=== PATIENT | female | born 1960 | race Caucasian/White ===

== ENCOUNTER → 2016-12-15 | Outpatient (CLI) | payer MEDICAID ==
[~2016-12-15] MED LIST: ASPI325T32 PO; BUDE10.2 IH; CETI10TA17 PO; ETHA400T29 PO; FLUT16SP22 NS; FLUT50DI IH; HYDR-3812 PO; ISON300T4 PO; MULT-141 PO; PYRA500T13 PO; PYRI50TA10 PO; RIFA300C3 PO; RT-ALBUINH IH; UMEC62.5 IH
--- OUTSIDE RECORDS SUMMARY | 2016-12-15 10:52 | XMS REPORT | Continuity of Care Document ---
Author Author [facility] Organization [facility] Address Unknown Phone Unavailable Care Team Providers Care Superintendent Water And Sewer Systems Name Role Phone NO, LOCAL PHYSICIAN PCP Unavailable Insurance Providers Payer Name Policy Number Subscriber Name Relationship Self Pay Pending Disability [id number] Sienna Mckinnon 18 Self / Same As Patient Advance Directives Directive Response Recorded Date/Time Advance Directives No 04/26/16 1:10pm Health Care Power of Lab Systems Analyst No 04/26/16 1:10pm Organ Donor No 04/26/16 1:10pm Resuscitation Status Full Code 04/26/16 1:10pm Chief Complaint and Reason for Visit Chief Complaint RUL PNEUMONIA Reason for Visit Pneumonia Problems Active Problems Medical Problem Onset Date Status Pneumonia Unknown Acute Medications Current Home Medications Medication Dose Units Route Directions Days/Qty Instructions Start Date Cetirizine Hcl 10 Mg 10 Mg Oral Daily 04/25/16 Albuterol Sulfate 18 Gm 1-2 Puff Inhalation Four Times Daily as needed for Shortness Of Breath 04/25/16 Budesonide/Formoterol Fumarate 10.2 Gm 2 Puff Inhalation Twice A Day 04/25/16 Fluticasone Propionate 16 Gm 2 Sprays Nasal Twice A Day 04/26/16 Umeclidinium Raymond 62.5 Mcg 1 Puff Inhalation Daily 04/26/16 Multivit With Calcium,Iron,Min 1 Each 1 Tab Oral Daily 04/26/16 Aspirin 325 Mg 650 Mg Oral Daily as needed for Pain TAKES 2 (325MG) TABLETS 04/26/16 Ethambutol Hcl 400 Mg 1,600 Mg Oral Daily 120 05/05/16 Isoniazid 300 Mg 300 Mg Oral Daily 30 05/05/16 Pyrazinamide 500 Mg 2,000 Mg Oral Daily 120 05/05/16 Rifampin 300 Mg 600 Mg Oral Daily 60 05/05/16 Hydrocodone/Acetaminophen 1 Each 1 Tab Oral Every 4HRS as needed for Pain 60 05/05/16 Pyridoxine Hcl 50 Mg 50 Mg Oral Daily 30 05/05/16 Past Home Medications Medication Directions Ordered Status Fluticasone Propionate 1 Disk Inhp, 50 Mcg Inhalation Twice A Day 04/25/16 Discontinued Social History Social History Problem Response Recorded Date/Time Alcohol Use Occasionally Uses 04/26/2016 2:44pm Recreational Drug Use No 04/26/2016 2:44pm Recent Foreign Travel No 04/26/2016 2:47pm Recent Infectious Disease Exposure No 04/26/2016 2:47pm Hospitalization with Isolation Denies 05/05/2016 2:12pm Sexually Transmitted Disease No 04/26/2016 2:44pm HIV/AIDS No 04/26/2016 2:44pm Smoking Status Former Smoker 04/26/2016 1:12pm Type Used Cigarettes 05/05/2016 2:13pm Query Response Start Date Stop Date Smoking Status Former Smoker Hospital Discharge Instructions Patient Instructions Physician Instructions New, Converted or Re-Newed RX: Transmitted to Pharmacy Goal/Follow Up Appt: MAY 12 AT 8:40 WITH LILY PATI[facility]O [place]. Patient Instructions: THE HEALTH DEPARTMENT WILL MEET YOU AT YOUR HOUSE LATER TODAY. PLEASE ASK FOR LIZBETH OR DEDE WHEN CHECKING IN AT THE CLINIC SO THEY CAN HELP YOU GET TO A ROOM QUICKLY. Return to The Hospital For: COUGHING UP BLOOD, FEVER >101 Discharge Diet: No Restrictions Activity as Tolerated: Yes (THE HEALTH DEPARTMENT WILL TELL YOU THE RESTRICTIONS FAR GOING IN PUBLIC) Care Plan Patient Instructions:: THE HEALTH DEPARTMENT WILL MEET YOU AT YOUR HOUSE LATER TODAY. PLEASE ASKFOR LIZBETH OR DEDE WHEN CHECKING IN AT THE CLINIC SO THEY CAN HELP YOU GETTO A ROOM QUICKLY. Goal:: MAY 12 AT 8:40 WITH LILY PATI[facility]O [place]. Plan of Care Discharge Date 07/21/16 1:45pm Disposition 09 ADMITTED INPATIENT Instructions/Education Provided PICC-POST REMOVAL CARE Tuberculosis (GEN) Prescriptions See Medication Section Referrals LILY PATIÑO APRN (Unspecified) - 05/12/16 Address: [address] [place] [address] Reason(s) for Referral: MAY 12, 2016 AT 8:40 A.M. LILY PATI[facility]O [facility] Additional Instructions/Education FOLLOW UP WITH DR. WATTERS [phone] IF NEEDED AND HE WANTS YOU TO FOLLOW UP WITH PCP AND HEALTH DEPT. [facility] DEPT TO VISIT LATER TODAY AT HOME Care Plan and Goals See Discharge Instructions Section Functional Status Query Response Date Recorded Patient Orientation Person Place Time Situation May 05, 2016 2:12pm Comprehension Ability Understands Concepts May 01, 2016 8:00pm Allergies, Adverse Reactions, Alerts Allergen Type Severity Reaction Status Last Updated Morphine Allergy Unknown Active 04/25/16 Immunizations No immunization records. Vital Signs Acute Vital Signs Vital Response Date/Time Temperature (Fahrenheit) 97.8 degrees F (97.6 - 99.5) 05/05/2016 10:00am Temperature (Calculated Celsius) 36.75922 degrees C (36.4 - 37.5) 05/05/2016 10:00am Temperature Source Oral 05/05/2016 10:00am Pulse Rate (adult) 109 bpm (60 - 90) 05/05/2016 10:00am Respiratory Rate 18 bpm (12 - 24) 05/05/2016 10:00am O2 Sat by Pulse Oximetry 98 % (88 - 100) 05/05/2016 11:16am Blood Pressure 127/72 mm Hg 05/05/2016 10:00am Blood Pressure Mean 90 mm Hg 05/05/2016 10:00am Pain Numeric Pain Scale 5-Moderate Pain 05/05/2016 1:20pm Pain Intensity 0 04/25/2016 8:25am Height (Feet) 5 feet 04/26/2016 1:32pm Height (Inches) 6.00 inches 04/26/2016 1:32pm Height (Calculated Centimeters) 167.557860 cm 04/26/2016 1:32pm Weight (Pounds) 170 pounds 05/03/2016 5:19pm Weight (Ounces) 12.0 oz 05/03/2016 5:19pm Weight (Calculated Grams) 19253.898 gm 05/03/2016 5:19pm Weight (Calculated Kilograms) 77.598826 kilograms 05/03/2016 5:19pm Calculated BMI 27.7 04/26/2016 1:32pm Results Pending Laboratory Results Test Name Collection Date/Time Pending Microbiology Results Procedure Source Collection Date/Time Procedures Procedure Status Date Provider(s) Interventional bronchoscopy Completed 04/25/16 DEEPALI WATTERS DO Encounters Encounter Location Arrival/Admit Date Discharge/Depart Date Attending Provider Discharged Inpatient [facility] 04/26/16 12:03pm 1:45pm CHRISTI ALLEN MD Departed Surgical Day Care [facility] 04/25/16 6:06am 8:45am DEEPALI WATTERS DO Registered Clinic [facility] 04/17/16 10:59am LILY PATIÑO APRN Recent Diagnosis Pneumonia
== END ==
LOC: LAB 10:48
PROVIDERS: ATTEND Internal Medicine Critical Care Medicine
DX: R09.3 Abnormal sputum (principal); R06.00 Dyspnea, unspecified
CPT/HCPCS: 87070; 87116; 87205

== ENCOUNTER → 2016-12-22 | Outpatient (CLI) | payer MEDICAID ==
--- OUTSIDE RECORDS SUMMARY | 2016-12-22 10:18 | XMS REPORT | Continuity of Care Document ---
Author Author [facility] Organization [facility] Address Unknown Phone Unavailable Care Team Providers Care Spinning Lathe Operator Name Role Phone NO, LOCAL PHYSICIAN PCP Unavailable Insurance Providers Payer Name Policy Number Subscriber Name Relationship Self Pay Pending Disability [id number] Sienna Mckinnon 18 Self / Same As Patient Advance Directives Directive Response Recorded Date/Time Advance Directives No 04/26/16 1:10pm Health Care Power of Guitar Repairer No 04/26/16 1:10pm Organ Donor No 04/26/16 [...] Sprays Nasal Twice A Day 04/26/16 Umeclidinium Darby 62.5 Mcg 1 Puff Inhalation Daily 04/26/16 [...] 12 AT 8:40 WITH LILY PATI[facility]O IN [place]. Patient Instructions: THE HEALTH DEPARTMENT WILL MEET [...] 12 AT 8:40 WITH LILY PATIÑO [place]. Plan of Care Discharge Date 07/21/16 1:45pm Disposition 09 ADMITTED INPATIENT Instructions/Education Provided PICC-POST REMOVAL CARE Tuberculosis (GEN) Prescriptions See Medication Section Referrals LILY PATIÑO APRN (Unspecified) - 05/12/16 Address: [address] [place] [address] Reason(s) for Referral: MAY 12, 2016 AT 8:40 A.M. LILY PATIÑO [facility] Additional Instructions/Education FOLLOW UP WITH DR. WATTERS [phone] IF NEEDED AND HE WANTS YOU TO FOLLOW UP WITH PCP AND HEALTH DEPT. [facility] DEPT TO VISIT LATER TODAY AT HOME [...] - 99.5) 05/05/2016 10:00am Temperature (Calculated Celsius) 36.17475 degrees C (36.4 - 37.5) 05/05/2016 10:00am [...] 6.00 inches 04/26/2016 1:32pm Height (Calculated Centimeters) 167.435316 cm 04/26/2016 1:32pm Weight (Pounds) 170 pounds 05/03/2016 5:19pm Weight (Ounces) 12.0 oz 05/03/2016 5:19pm Weight (Calculated Grams) 16838.898 gm 05/03/2016 5:19pm Weight (Calculated Kilograms) 77.587518 kilograms 05/03/2016 5:19pm Calculated BMI 27.7 04/26/2016 1:32pm Results Pending Laboratory Results Test Name Collection Date/Time Pending Microbiology Results Procedure Source Collection Date/Time Procedures Procedure Status Date Provider(s) Interventional bronchoscopy Completed 04/25/16 DEEPALI WATTERS DO Encounters Encounter Location Arrival/Admit Date Discharge/Depart Date Attending Provider Discharged Inpatient [facility] 04/26/16 12:03pm 1:45pm CHRISTI ALLEN MD Departed Surgical Day Care [facility] 04/25/16 6:06am 8:45am DEEPALI WATTERS DO Registered Clinic [facility] 04/17/16 10:59am LILY PATIÑO APRN Recent Diagnosis Pneumonia
--- NOTE | 2016-12-22 15:02 | Diagnostic Imaging Report ---
PROCEDURE: CT chest without contrast. TECHNIQUE: Multiple contiguous axial images were obtained through the chest without the use of intravenous contrast. INDICATION: Dyspnea, abnormal sputum. The previous CT chest exam of 04/17/16 noted a large 7.2 cm cavitary mass with a small air-fluid level in the right upper lobe. Just superior to this, there was a smaller 1.5 cm partially cavitated lung nodule. There was also a solid 1.4 cm nodule in the medialmost portion of the right upper lung. FINDINGS: On this exam, the cavitary lesion in the right upper lung has decreased in size and now measures 4.5 cm. The fluid within the cavitary lesion seen previously is also resolved. The other cavitary lesion in the left upper lung noted previously is also decreased in size and now measures 11.1 cm. This finding now appears to be predominantly solid. The 1.4 cm solid lesion in the medial aspect of the right apex now measures only 1.3 cm. The alveolar/interstitial parenchymal densities about these cavitary lesions seen on the prior study are again evident. These seem somewhat less conspicuous as well. The patchy alveolar/interstitial densities in the right midlung and right lung base noted previously are again evident and essentially no different. However, a new area of slight increased density has developed in the medialmost portion of the right lung base. The previous study also identified a cavitary lesion in the left perihilar region. This measured 2.7 cm. That finding is again evident and now is much smaller measuring only 1.4 cm. The 0.6 cm nodule in the left upper lung is essentially no different and now measures 0.7 cm. As on the previous study, there are patchy alveolar/interstitial infiltrates in the left upper lung. The left lower lobe remains relatively clear. There is still no sign of a pleural effusion. The heart size is within normal limits. The aorta is not abnormally dilated. There do appear to be a few small pretracheal nodes. These are similar to the prior exam. The thyroid gland is not enlarged. In the interval since the prior study, several prominent lymph nodes have developed in both axillae. The largest node in each axilla measures approximately 1.5 cm. These are of uncertain etiology. There is no obvious breast mass. The bone windows show no evidence for a fracture or for a destructive lesion. The sections through the upper abdomen fail to show any sign of an acute abnormality. IMPRESSION: 1. The appearance of the chest has improved since the prior study as the cavitary lesions involving both lungs noted on the prior study have decreased in size. There are still alveolar/interstitial patchy densities in the right lung and in the left upper lung. These do not appear to have changed significantly with the exception of a new area of increased density in the right lower lobe. Whether this finding is chronic in nature or whether there is an element of acute pneumonia/atelectasis is not certain. Clinical followup is recommended. 2. In the interval since the prior study, bilateral axillary adenopathy has developed. This is nonspecific. There is no obvious breast mass identified. However according to our records, the patient has not had a recent mammogram. Unless the patient has had a mammogram elsewhere, then mammography would be recommended for further evaluation. Dictated by: Dictated on workstation # [id number]
== END ==
LOC: RAD 10:15
PROVIDERS: ATTEND Internal Medicine Critical Care Medicine
DX: R06.00 Dyspnea, unspecified (principal); R09.3 Abnormal sputum
CPT/HCPCS: 71250

== ENCOUNTER 2017-05-09 10:00 | Outpatient (RCR) | payer MEDICAID | END 2017-05-21 | disposition home or self-care (01) | LOC: PULM 10:00 | PROVIDERS: ATTEND Internal Medicine Critical Care Medicine | DX: R06.00 Dyspnea, unspecified (principal); A15.9 Respiratory tuberculosis unspecified | CPT/HCPCS: 99211 ==

== ENCOUNTER 2018-01-22 10:36 | Outpatient (RCR) | payer MEDICAID ==
[~2018-01-22 10:36] MED LIST changes: +ACHD5005 PO; -HYDR-3812 PO
[2018-03-13 14:00] VITALS: BP 120/89
[2018-03-13 15:00] VITALS: BP 122/80
[2018-03-15 14:00] VITALS: BP 116/80
[2018-03-15 15:00] VITALS: BP 140/60
[2018-03-20 09:00] VITALS: BP 120/84
[2018-03-20 10:00] VITALS: BP 120/60
[2018-03-22 08:42] VITALS: BP 140/60
[2018-03-22 09:50] VITALS: BP 120/70
[2018-03-27 08:45] VITALS: BP 125/80
[2018-03-27 09:50] VITALS: BP 130/90
[2018-04-03 09:00] VITALS: BP 118/60
[2018-04-05 09:58] VITALS: BP 122/50
[2018-04-05 10:05] VITALS: BP 140/70
[2018-04-19 08:45] VITALS: BP 130/70
[2018-04-19 09:58] VITALS: BP 97/60
[2018-04-24 09:00] VITALS: BP 130/60
[2018-04-24 10:00] VITALS: BP 130/70
== END 2018-04-22 | disposition home or self-care (01) ==
LOC: PULM 10:36
PROVIDERS: ATTEND Nurse Practitioner Family
DX: J44.9 Chronic obstructive pulmonary disease, unspecified (principal)
CPT/HCPCS: 99211

== ENCOUNTER → 2018-02-26 | Outpatient (CLI) | payer MEDICAID ==
[~2018-02-26] MED LIST changes: +RT-ALBUTEROL SULF 2.5 MG/3 ML PRE-MIX VIAL INH ONE
[2018-03-06 14:00] VITALS: BP 130/60
[2018-03-06 15:00] VITALS: BP 130/82
[2018-03-08 14:00] VITALS: BP 127/88
[2018-03-08 15:00] VITALS: BP 100/80
== END ==
LOC: RT 12:33
PROVIDERS: ATTEND Nurse Practitioner Family
DX: J44.9 Chronic obstructive pulmonary disease, unspecified (principal); R06.00 Dyspnea, unspecified; R09.02 Hypoxemia; F17.201 Nicotine dependence, unspecified, in remission
CPT/HCPCS: 94060; 94726; 94729

== ENCOUNTER 2018-04-23 08:00 | Outpatient (RCR) | payer MEDICAID ==
[~2018-04-23 08:00] MED LIST changes: -RT-ALBUTEROL SULF 2.5 MG/3 ML PRE-MIX VIAL INH ONE
[2018-05-01 09:00] VITALS: BP 130/81
[2018-05-01 10:00] VITALS: BP 120/70
[2018-05-03 09:00] VITALS: BP 140/60
[2018-05-03 10:00] VITALS: BP 140/60
[2018-05-08 09:00] VITALS: BP 140/80
[2018-05-08 10:00] VITALS: BP 128/70
[2018-05-15 10:00] VITALS: BP 118/60
[2018-05-15 10:57] VITALS: BP 120/80
[2018-05-17 08:45] VITALS: BP 140/40
[2018-05-17 10:00] VITALS: BP 140/60
[2018-05-22 08:45] VITALS: BP 130/80
[2018-05-22 09:40] VITALS: BP 130/82
== END 2018-05-15 | disposition home or self-care (01) ==
LOC: PULM 08:00
PROVIDERS: ATTEND Nurse Practitioner Family
DX: J44.9 Chronic obstructive pulmonary disease, unspecified (principal)

== ENCOUNTER 2018-12-12 06:51 | Outpatient (CLI) | payer MEDICAID ==
[~2018-12-12] VITALS: Ht 167.6 cm; Wt 72.6 kg
[~2018-12-12 06:51] MED LIST changes: +ISON300T18 PO; -ISON300T4 PO
== END 2018-12-12 10:41 ==
LOC: PREOP 06:51
PROVIDERS: ATTEND Internal Medicine Critical Care Medicine
DX: Z01.818 Encounter for other preprocedural examination (principal)

== ENCOUNTER 2018-12-13 07:12 | Day surgery (SDC) | payer MEDICAID ==
[~2018-12-13] VITALS: Ht 167.6 cm; Wt 72.6 kg
[2018-12-13] MEDS ORDERED: LIDOCAINE PF 1% 2 ML VIAL (OR ONLY) IJ ONE (07:13)
[2018-12-13] MEDS ORDERED: LIDOCAINE PF 2% 5 ML (XYLOCAINE) VIAL INJ ONE (07:13)
[2018-12-13] MEDS ORDERED: LIDOCAINE JELLY 2% 6 ML SYRINGE TOP ONE (07:13)
[2018-12-13] MEDS ORDERED: LACTATED RINGERS 1,000 ML IV ONE (07:17)
[2018-12-13] MEDS ORDERED: proPOfol 200 MG/20 ML (DIPRIVAN) VIAL IV ONE ×3 (07:24→08:13)
[2018-12-13] MEDS ORDERED: MIDAZOLAM 2 MG/2 ML (VERSED) VIAL ONE (07:24)
[2018-12-13 07:25] VITALS: BP 153/84
[2018-12-13] MEDS ORDERED: LACTATED RINGERS 1,000 ML IV PRN (07:30)
--- NOTE | 2018-12-13 08:38 | Pulmonary Procedures ---
Pulmonary Procedures Date of Procedure Date of Service: Dec 13, 2018 Bronch Bronchoscopy with Fluoroscopy Mainstem gladys percepta brush x 2, bilateral wash upper and lower airways bilaterally, Right LL bronchoalveolar lavage (BAL) , RLL transbronchial forcep bx and, RLL transbronchial brushesx3 . Preop DX ILD, lung nodules Postop DX: Small endobronchial lesions x2 pictures taken Complications: none After informed consent obtained and formal time out obtained pt was sedated per anesthesia. 1% lidocaine was used to anesthetize vocal cords, epiglottis, gladys, and left/right main stem bronchus. An anatomical tour was undertaken down to the segmental bronchi bilaterally. PT has LLL endobronchial lesions x2 which maybe benign. Bronchoscopy with Fluoroscopy Mainstem gladys brush x 2, bilateral wash upper and lower airways bilaterally, Right LL bronchoalveolar lavage (BAL), RLL transbronchial forcep bx and, RLL transbronchial brushesx3 . Pt tolerated procedure well. No complications noted. Stat CXR is pending. DEEPALI WATTERS DO Dec 13, 2018 08:38
[2018-12-13 08:50] VITALS: BP 129/74
--- NOTE | 2018-12-13 09:28 | Diagnostic Imaging Report ---
CLINICAL INDICATION: Patient post bronchoscopy. EXAM: Portable chest x-ray upright view. COMPARISONS: Chest x-ray dated 05/05/2016. Chest CT scan without contrast dated 12/22/2016. FINDINGS: There is interval improved aeration of the right lung field with residual small areas of consolidation involving the medial right upper lobe region and amorphous curvilinear and patchy consolidation in the right lung apex with adjacent pleural thickening. There is interval development of mild patchy airspace opacities in the left perihilar/left midlung field region which may represent scarring. There is a 6 mm nodular area overlying the right lung base again seen. There is stable tenting and slight elevation of right hemidiaphragm likely related to scarring. There is no pleural effusion or pneumothorax. Pulmonary vasculature and cardiac silhouettes within normal limits. There is interval removal of the right PICC line. There are degenerative spurs involving the thoracic spine. IMPRESSION: 1: There is interval improved aeration of the right lung with residual small amount of consolidation involving the medial right upper lobe and curvilinear patchy consolidation in the right lung apex. There is also residual pleural thickening seen in the right lung apex. These findings may represent scarring, but superimposed infection or inflammatory process or infiltrative process cannot be completely excluded. Patient was known to have a cavitary lesion in this area. There is suspected residual right lung base scarring. Comparison with recent chest x-ray or CT scan of the chest would help better evaluate for chronicity of this finding. 2: Persistent minimal airspace opacity in the left midlung field perihilar region which may represent scarring. 3: Stable 6 mm nodular area in the periphery of the right lung base. Dictated by: Dictated on workstation # [id number]
[2018-12-13 09:45] VITALS: BP 117/78
[2018-12-13 10:01] VITALS: BP 117/78
--- NOTE | 2018-12-13 13:32 | Anesthesia-General Post-Op ---
MAC Patient Condition Mental Status/LOC: Same as Preop Cardiovascular: Satisfactory Nausea/Vomiting: Absent Respiratory: Satisfactory Pain: Controlled Complications: Absent Post Op Complications Complications None Follow Up Care/Instructions Patient Instructions None needed. Anesthesiology Discharge Order Discharge Order Patient is doing well, no complaints, stable vital signs, no apparent adverse anesthesia problems. No complications reported per nursing. STEPHY SHAH CRNA Dec 13, 2018 13:32
--- NOTE | 2018-12-13 16:38 | Diagnostic Imaging Report ---
INDICATION: Fluoroscopic guidance during endoscopy. FINDINGS AND IMPRESSION: A total of 15 seconds fluoroscopy time was utilized during bronchoscopy by Dr. Sanz. Please see procedure report for complete details. Dictated by: Dictated on workstation # [id number]
--- OUTSIDE RECORDS SUMMARY | 2018-12-16 01:39 | XMS REPORT ---
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 Active 88840572 Problem Over weight E66.3 Active 815941760 Problem Allergic rhinitis J30.9 Active 35019362 Problem Unspecified chronic bronchitis J42 Active 97993098 Problem Acute bronchitis, unspecified organism J20.9 Active 38354279 Problem Psoriasis L40.9 Active 1209848 Problem Subclinical hypothyroidism E03.9 Active 39417102 Problem Acute nasopharyngitis J00 Active 95571702 Problem Bronchitis, chronic obstructive w acute bronchitis J44.0 Active 602432865 Problem Chronic obstructive pulmonary disease, unspecified COPD type J44.9 Active 90696924 ALLERGIES No Information ENCOUNTERS Encounter Location Date Diagnosis [facility] [address] [id number] [address] Jul, [facility] [address] [facility] [id number] [id number] Jul, Acute bronchitis, unspecified organism J20.9 [place] [address] [facility] [address] [id number], [place] [id number] Mar, Cough R05 ; Wheeze R06.2 ; Chronic obstructive pulmonary disease, unspecified COPD type J44.9 ; Bronchitis, chronic obstructive w acute bronchitis J44.0 and Allergic rhinitis J30.9 [facility] [address] [id number] [id number] Mar, Allergic rhinitis J30.[address] [facility] [address] [id number] [id number] Mar, Psoriasis L40.9 [facility] [address] [id number][place] [id number] Dec, Bronchitis, chronic obstructive w acute bronchitis J44.[address] [facility] [address] [id number], [place] [id number] Nov, Rash R21 and Pain of right thumb M79.644 [facility] [address] [id number] [address] Aug, Chronic obstructive pulmonary disease, unspecified COPD type J44.9 [facility] [id number][place] [id number] Jun, Chronic obstructive pulmonary disease, unspecified COPD type J44.9 ; Subclinical hypothyroidism E03.9 ; Elevated liver enzymes R74.8 and Encounter for immunization Z23 [facility] [address] [facility] [id number] POINT[place] [address] Jun, Chronic obstructive pulmonary disease, unspecified COPD type J44.[address] [facility] [address] [id number], [place] [id number] Jun, Dental abscess K04.7 [facility] [id number][place] [id number] May, Unspecified chronic bronchitis J42 [facility] [address] [id number], [place] [id number] Jan, Acute nasopharyngitis J00 [facility] [address] [id number], [place] [id number] Jan, TB (pulmonary tuberculosis) A15.0 ; Unspecified chronic bronchitis J42 and Tobacco use disorder, mild, 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 [facility] [address] [id number], [place] [id number] Jan, [facility] [address] [id number][place] [id number] Dec, Simple chronic bronchitis J41.[address] [id number], [place] [id number] Dec, Simple chronic bronchitis J41.0 ; Shortness of breath R06.02 and TB (pulmonary tuberculosis) A15.[address] [id number][place] [id number] May, Anxiety associated with depression F41.[address] [id number], [place] [id number] May, Active tuberculosis A15.9 ; Chest pain on breathing R07.1 ; Elevated liver enzymes R74.8 ; Insomnia, unspecified type G47.00 and Anxiety associated with depression F41.8 [facility] [address] [id number][place] [id number] Apr, [facility] [address]65100[place] [address] Apr, [facility] [address]65100[place] [address] Apr, [address] [id number], [place] [id number] Apr, Lung nodule R91.1 and Pulmonary emphysema, unspecified emphysema type J43.[address] [id number], [place] [id number] Apr, Pulmonary emphysema, unspecified emphysema type J43.9 and Abnormal chest xray R93.[address] [id number], [place] [id number] Mar, Unspecified chronic bronchitis J42 ; Tobacco use disorder, mild, 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 and Abnormal x-ray R93.8 [facility] [id number][place] [id number] Mar, Seasonal allergies J30.2 ; Cough R05 and Post-nasal drainage R09.[address] [id number], [place] [id number] 02 Mar, 2016 Cough R05 and Tobacco use disorder, mild, 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 [id number], [place] [id number] February, Well woman exam Z01.419 and Breast cancer screening Z12.[address] [id number], [place] [id number] February, [address] [id number], [place] [id number] February, Elevated white blood cell count D72.829 and Elevated platelet count D47.[address] [id number], [place] [id number] February, Wellness examination Z00.[address] [id number], [place] [id number] 18 Jan, [address] [id number], [place] [id number] Jan, Wheezing R06.2 ; Cough R05 ; Allergic rhinitis J30.9 ; Encounter for laboratory examination Z00.00 ; Over weight E66.3 and Tobacco use disorder, mild, 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 [facility] [address] [facility] [address] [id number] POINT[place] [id number] Jan, [address] [id number], [place] [id number] Jan, Unspecified infectious disease B99.9 and Pneumonia in diseases classified elsewhere J17 [address] [id number], [place] [id number] Jan, Wheezing R06.2 ; Cough R05 and Allergic rhinitis J30.9 IMMUNIZATIONS No Known Immunizations SOCIAL HISTORY Never Assessed REASON FOR VISIT medication PLAN OF CARE VITAL SIGNS MEDICATIONS Unknown Medications RESULTS No Results PROCEDURES No Known procedures INSTRUCTIONS MEDICATIONS ADMINISTERED No Known Medications MEDICAL (GENERAL) HISTORY Type Description Date Medical History Environmental allergies Medical History Chronic Bronchitis- PFT 03/2016- Normal Medical History Empysema with bleb xray 11/2015 Medical History TB- Active 04/2016- [facility] Surgical History bilateral knee reconstruction Surgical History bilateral tubal ligation (BTL) Hospitalization History PNEUMONIA Hospitalization History RUL PNeumonia/TB--[facility] 04/26/16 Hospitalization History [facility]-pneumonia 05/31 Hospitalization History [facility] in [place] for TB 04/2016-2015
--- OUTSIDE RECORDS SUMMARY | 2018-12-16 01:39 | XMS REPORT ---
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 Active 71407918 Problem Over weight E66.3 Active 758985789 Problem Allergic rhinitis J30.9 Active 45764872 Problem Psoriasis L40.9 Active 8953801 Problem Bronchitis, chronic obstructive w acute bronchitis J44.0 Active 684704386 Problem Acute nasopharyngitis J00 Active 82193543 Problem Simple chronic bronchitis J41.0 Active 18191783 Problem Chronic obstructive pulmonary disease, unspecified COPD type J44.9 Active 16432375 Problem Subclinical hypothyroidism E03.9 Active 69792900 ALLERGIES No Information ENCOUNTERS Encounter Location Date Diagnosis [place] [address] [facility] [id number] [id number] Mar, Cough R05 ; Wheeze R06.2 ; Chronic obstructive pulmonary disease, unspecified COPD type J44.9 ; Bronchitis, chronic obstructive w acute bronchitis J44.0 and Allergic rhinitis J30.9 [facility] [address] [id number], [place] [id number] Mar, Allergic rhinitis J30.9 [facility] [address] [facility] [address] [facility] [address] [id number][place] [id number] Mar, Psoriasis L40.9 [place] [address] [facility] [address] [id number][place] [id number] Dec, Bronchitis, chronic obstructive w acute bronchitis J44.0 [facility] [address] [id number], [place] [id number] Nov, Rash R21 and Pain of right thumb M79.644 [facility] [address] [facility] [id number], [place] [address]69[address] Aug, Chronic obstructive pulmonary disease, unspecified COPD type J44.9 [facility] [address] [id number], [place] [id number] Jun, Chronic obstructive pulmonary disease, unspecified COPD type J44.9 ; Subclinical hypothyroidism E03.9 ; Elevated liver enzymes R74.8 and Encounter for immunization Z23 [facility] [address] [facility] [id number], [place] [address] Jun, Chronic obstructive pulmonary disease, unspecified COPD type J44.[address] [id number][place] [id number] Jun, Dental abscess K04.7 [facility] [address] [id number][place] [address] May, Unspecified chronic bronchitis J42 [facility] [address] [facility] [address] [id number], [place] [address] Jan, Acute nasopharyngitis J00 [facility] [address] [place] [address] AVE [id number], [place] [id number] Jan, TB (pulmonary tuberculosis) A15.0 ; Unspecified chronic bronchitis J42 and Tobacco use disorder, mild, 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 [facility] [address] [id number], [place] [id number] Jan, [facility] [address] [id number], [place] [address] Dec, Simple chronic bronchitis J41.0 [facility] [address] [id number], [place] [id number] Dec, Simple chronic bronchitis J41.0 ; Shortness of breath R06.02 and TB (pulmonary tuberculosis) A15.[address] [id number], [place] [id number] May, Anxiety associated with depression F41.[address] [id number], [place] [address] May, Active tuberculosis A15.9 ; Chest pain on breathing R07.1 ; Elevated liver enzymes R74.8 ; Insomnia, unspecified type G47.00 and Anxiety associated with depression F41.8 [facility] [address] [facility] [id number], [place] [id number] Apr, [facility] [address] [id number], [place] [address] Apr, [facility] [address] [id number], [place] [address] Apr, [address] [id number], [place] [id number] Apr, Lung nodule R91.1 and Pulmonary emphysema, unspecified emphysema type J43.[address] [id number], [place] [address] Apr, Pulmonary emphysema, unspecified emphysema type J43.9 and Abnormal chest xray R93.[address] [id number], [place] [id number] Mar, Unspecified chronic bronchitis J42 ; Tobacco use disorder, mild, 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 and Abnormal x-ray R93.[address] [id number], [place] [id number] Mar, Seasonal allergies J30.2 ; Cough R05 and Post-nasal drainage R09.[address] [id number], [place] [address] Mar, Cough R05 and Tobacco use disorder, mild, 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 [id number], [place] [address] February, Well woman exam Z01.419 and Breast cancer screening Z12.[address] [id number], [place] [address] February, [address] [id number], [place] [address] February, Elevated white blood cell count D72.829 and Elevated platelet count D47.[address] [id number], [place] [address] February, Wellness examination Z00.[address] [id number], [place] [address] Jan, [address] [id number], [place] [address] Jan, Wheezing R06.2 ; Cough R05 ; Allergic rhinitis J30.9 ; Encounter for laboratory examination Z00.00 ; Over weight E66.3 and Tobacco use disorder, mild, 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 [facility] [address] [facility] [id number], [place] [address] Jan, [address] [id number], [place] [address] Jan, Unspecified infectious disease B99.9 and Pneumonia in diseases classified elsewhere J17 [address] [id number], [place] [address] Jan, Wheezing R06.2 ; Cough R05 and Allergic rhinitis J30.9 IMMUNIZATIONS No Known Immunizations SOCIAL HISTORY Never Assessed REASON FOR VISIT med refill PLAN OF CARE VITAL SIGNS MEDICATIONS Medication Instructions Dosage Frequency Start Date End Date Duration Status Flonase Allergy Relief 50 MCG/ACT Nasally twice a day 1 spray in each nostril 12h 0 days Active RESULTS No Results PROCEDURES No Known procedures INSTRUCTIONS MEDICATIONS ADMINISTERED No Known Medications MEDICAL (GENERAL) HISTORY Type Description Date Medical History Environmental allergies Medical History Chronic Bronchitis- PFT 03/2016- Normal Medical History Empysema with bleb xray 11/2015 Medical History TB- Active 04/2016- [facility] Surgical History bilateral knee reconstruction Surgical History bilateral tubal ligation (BTL) Hospitalization History PNEUMONIA Hospitalization History [facility] PNeumonia/TB--[facility] 04/26/16 Hospitalization History [facility]-pneumonia 05/31 Hospitalization History [facility] in [place] for TB 04/2016-2015
--- OUTSIDE RECORDS SUMMARY | 2018-12-16 01:39 | XMS REPORT ---
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 Active 95271727 Problem Over weight E66.3 Active 122411162 Problem Allergic rhinitis J30.9 Active 67572841 Problem Psoriasis L40.9 Active 0091761 Problem Bronchitis, chronic obstructive w acute bronchitis J44.0 Active 909364362 Problem Acute nasopharyngitis J00 Active 52918634 Problem Simple chronic bronchitis J41.0 Active 37738057 Problem Chronic obstructive pulmonary disease, unspecified COPD type J44.9 Active 20863032 Problem Subclinical hypothyroidism E03.9 Active 05421428 ALLERGIES No Known Allergies ENCOUNTERS Encounter Location Date Diagnosis [facility] [employer] [address] [id number] [place] [id number] Mar, Cough R05 ; Wheeze R06.2 ; Chronic obstructive pulmonary disease, unspecified COPD type J44.9 ; Bronchitis, chronic obstructive w acute bronchitis J44.0 and Allergic rhinitis J30.9 [facility] [address] [facility] [id number], [place] [id number] Mar, Allergic rhinitis J30.9 [facility] [employer] [id number] [place] [id number] Mar, Psoriasis L40.9 [facility] [employer] [facility] [address] [id number] FALLS[place] [id number] Dec, Bronchitis, chronic obstructive w acute bronchitis J44.0 [facility] [address] [id number] FALLS[place] [address] Nov, Rash R21 and Pain of right thumb M79.644 [facility] [address] [facility] [id number][place] [address] Aug, Chronic obstructive pulmonary disease, unspecified COPD type J44.[address] [id number] FALLS[place] [id number] Jun, Chronic obstructive pulmonary disease, unspecified COPD type J44.9 ; Subclinical hypothyroidism E03.9 ; Elevated liver enzymes R74.8 and Encounter for immunization Z23 [facility] [address] [facility] [id number][place] [address] Jun, Chronic obstructive pulmonary disease, unspecified COPD type J44.9 [facility] [place] [address] [address] [facility] [address] [id number] FALLS[place] [address] Jun, Dental abscess K04.7 [facility] [address] [id number] FALLS[place] [id number] May, Unspecified chronic bronchitis J42 [facility] [address] [id number] [place]ALLS[place] [address] Jan, Acute nasopharyngitis J00 [facility] [id number] [place]ALLS[place] [address] Jan, TB (pulmonary tuberculosis) A15.0 ; Unspecified chronic bronchitis J42 and Tobacco use disorder, mild, 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 [facility] [address] [id number] [place]ALLS[place] [address] Jan, [facility] [employer] [id number] FALLS, [place] [address] Dec, Simple chronic bronchitis J41.0 [facility] [address] [id number] [place]ALLS[place] [address] Dec, Simple chronic bronchitis J41.0 ; Shortness of breath R06.02 and TB (pulmonary tuberculosis) A15.[address] [id number] [place]ALLS[place] [address] May, Active tuberculosis A15.9 ; Chest pain on breathing R07.1 ; Elevated liver enzymes R74.8 ; Insomnia, unspecified type G47.00 and Anxiety associated with depression F41.[address] [id number] FALLS[place] [address] May, Anxiety associated with depression F41.8 [facility] [address] [facility] [id number], [place] [id number] Apr, [facility] [address]00565100[place] [address] Apr, [facility] [address] [place] [id number], [place] [address] Apr, [address] [id number] FALLS, [place] [address] Apr, Lung nodule R91.1 and Pulmonary emphysema, unspecified emphysema type J43.[address] [id number] FALLS, [place] [address] Apr, Pulmonary emphysema, unspecified emphysema type J43.9 and Abnormal chest xray R93.[address] [id number] FALLS, [place] [address] Mar, Unspecified chronic bronchitis J42 ; Tobacco use disorder, mild, 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 and Abnormal x-ray R93.[address] [id number] FALLS, [place] [address] Mar, Seasonal allergies J30.2 ; Cough R05 and Post-nasal drainage R09.[address] [id number] FALLS, [place] [address] Mar, Cough R05 and Tobacco use disorder, mild, 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 [id number] FALLS, [place] [address] February, Well woman exam Z01.419 and Breast cancer screening Z12.[address] [id number] [place]ALLS, [place] [address] February, [address] [id number] [place]ALLS, [place] [address] February, Elevated white blood cell count D72.829 and Elevated platelet count D47.[id number] [place] [address] February, Wellness examination Z00.[address] [id number] [place]ALLS[place] [address] 18 Jan, [address] [id number] FALLS, [place] [address] Jan, Wheezing R06.2 ; Cough R05 ; Allergic rhinitis J30.9 ; Encounter for laboratory examination Z00.00 ; Over weight E66.3 and Tobacco use disorder, mild, 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 [facility] [address] [facility] [id number], [place] [address] Jan, [address] [id number] FALLS[place] [id number] Jan, Unspecified infectious disease B99.9 and Pneumonia in diseases classified elsewhere J17 [address] [id number] FALLS, [place] [id number] Jan, Wheezing R06.2 ; Cough R05 and Allergic rhinitis J30.9 IMMUNIZATIONS Vaccine Route Administration Date Status SOLUMEDROL (UP TO 125 MG) IM Intramuscular April 07, 2018 Administered SOCIAL HISTORY Never Assessed REASON FOR VISIT Cold symptoms, scratchy throat, runny/stuffy nose, cough with yellow/brown sputum, sinus pain, achy body, SOA more than usual, all has been going on for 3 days---olinda RN PLAN OF CARE Activity Details Follow Up if s/s not improving with PCP or in Clinic Reason: VITAL SIGNS Height 65 in 2018-04-07 Weight 216.49 lbs 2018-04-07 Temperature 98.2 degrees Fahrenheit 2018-04-07 Heart Rate 98 bpm 2018-04-07 Respiratory Rate 18 2018-04-07 BMI 36.02 kg/m2 2018-04-07 Blood pressure systolic 148 mmHg 2018-04-07 Blood pressure diastolic 85 mmHg 2018-04-07 MEDICATIONS Medication Instructions Dosage Frequency Start Date End Date Duration Status Doxycycline Hyclate 100 mg Orally twice a day 1 capsule 12h Mar, Apr, 10 day(s) Active Ibuprofen 800 MG Orally 2 times a day 1 tablet with food or milk as needed 12h Nov, Active Triamcinolone Acetonide 0.1 % Externally Twice a day- mix with silvadene 1 application to affected area Nov, 10 days Active Incruse Ellipta 62.5 MCG/INH Inhalation Once a day 1 puff 24h Dec, Active Ventolin HFA 108 (90 Base) MCG/ACT Inhalation 4 times a day 2 puffs 6h Jan, Active Flonase Allergy Relief 50 MCG/ACT Nasally twice a day 1 spray in each nostril 12h Active Cetirizine HCl 10 mg Orally Once a day 1 tablet as needed 24h Active Breo Ellipta 200-25 MCG/INH Inhalation Once a day 1 puff 24h Active RESULTS No Results PROCEDURES Procedure Date Ordered Result Body Site SOLUMEDROL (UP TO 125 MG) April 07, 2018 THER/PROPH/DIAG INJ, SC/IM April 07, 2018 INSTRUCTIONS MEDICATIONS ADMINISTERED No Known Medications MEDICAL (GENERAL) HISTORY Type Description Date Medical History Environmental allergies Medical History Chronic Bronchitis- PFT 03/2016- Normal Medical History Empysema with bleb xray 11/2015 Medical History TB- Active 04/2016- [facility] Surgical History bilateral knee reconstruction Surgical History bilateral tubal ligation (BTL) Hospitalization History PNEUMONIA Hospitalization History RUL PNeumonia/TB--[facility]ia [facility] 04/26/16 Hospitalization History [facility]-pneumonia 05/31 Hospitalization History Via [facility] in [place] for TB 04/2016-2015
--- OUTSIDE RECORDS SUMMARY | 2018-12-16 01:39 | XMS REPORT ---
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 [address] [id number] [place] [id number] Mar, Cough R05 ; Wheeze R06.2 ; Chronic obstructive pulmonary disease, unspecified COPD type J44.9 ; Bronchitis, chronic obstructive w acute bronchitis J44.0 and Allergic rhinitis J30.9 [facility] [address] [id number] [place] [id number] Mar, Allergic rhinitis J30.9 [facility] [address] [id number] MEETING[place] [id number] Mar, Psoriasis L40.9 [facility] [address] [id number] MEET[place] [address] Dec, Bronchitis, chronic obstructive w acute bronchitis J44.0 [facility] [address] [id number] [place] [id number] Nov, Rash R21 and Pain of right thumb M79.644 [facility] [place] [address] [facility] [id number] RIVER[place] [address] Aug, Chronic obstructive pulmonary disease, unspecified COPD type J44.9 [facility] [address] [place] [address] AVE [id number] ME[place]ING[place] [id number] Jun, Chronic obstructive pulmonary disease, unspecified COPD type J44.9 ; Subclinical hypothyroidism E03.9 ; Elevated liver enzymes R74.8 and Encounter for immunization Z23 [facility] [place] [address] [facility] [id number] [place]IVER[place] [address] Jun, Chronic obstructive pulmonary disease, unspecified COPD type J44.9 [facility] [address] [id number] MEETING[place] [id number] Jun, Dental abscess K04.7 [facility] [address] [place] [address] AVE [id number] ME[place] [id number] May, Unspecified chronic bronchitis J42 [facility] [id number] [place] [address] Jan, Acute nasopharyngitis J00 [facility] [id number] [place] [address] Jan, TB (pulmonary tuberculosis) A15.0 ; Unspecified chronic bronchitis J42 and Tobacco use disorder, mild, 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1 ; Elevated liver enzymes R74.8 ; Insomnia, unspecified type G47.00 and Anxiety associated with depression F41.8 [address] [id number] MEET[place] [address] May, Anxiety associated with depression F41.8 [facility] [id number] [place] [id number] Apr, [facility] [place] [address]00565100[place] [address] Apr, [facility] [place] [address] [id number] [address] Apr, [address] [id number] [place] [address] Apr, Lung nodule R91.1 and Pulmonary emphysema, unspecified emphysema type J43.[address] [id number] MEET[place], [place] [id number] Apr, Pulmonary emphysema, unspecified emphysema type J43.9 and Abnormal chest xray R93.[address] [id number] MEETING[place] [address] Mar, Unspecified chronic bronchitis J42 ; Tobacco use disorder, mild, 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 and Abnormal x-ray R93.[address] [id number] MEET[place] [address] Mar, Seasonal allergies J30.2 ; Cough R05 and Post-nasal drainage R09.[address] [id number] MEETING[place] [address] Mar, Cough R05 and Tobacco use disorder, mild, 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 [id number] ME[place] [address] February, Well woman exam Z01.419 and Breast cancer screening Z12.[address] [id number] [place] [address] February, [address] [id number] MEETING[place] [address] February, Elevated white blood cell count D72.829 and Elevated platelet count D47.[address] [id number] MEETING[place] [address] February, Wellness examination Z00.[address] [id number] [place]ING[place] [address] Jan, [address] [id number] MEET[place] [address] Jan, Wheezing R06.2 ; Cough R05 ; Allergic rhinitis J30.9 ; Encounter for laboratory examination Z00.00 ; Over weight E66.3 and Tobacco use disorder, mild, 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 [id number] [place]IVER[place] [address] Jan, [address] [id number] MEETING[place] [address] Jan, Unspecified infectious disease B99.9 and Pneumonia in diseases classified elsewhere J17 [address] [id number] [place] [address] Jan, Wheezing R06.2 ; Cough R05 and Allergic rhinitis J30.9 IMMUNIZATIONS No Known Immunizations SOCIAL HISTORY Never Assessed REASON FOR VISIT Cough started last week. Congestion, SOB. No known fever. bferrisma PLAN OF CARE Activity Details Follow Up 3 Months with PCP Reason:COPd VITAL SIGNS Height 66 in 2018-01-02 Weight 167.5 lbs 2018-01-02 Temperature 96.5 degrees Fahrenheit 2018-01-02 Heart Rate 90 bpm 2018-01-02 Respiratory Rate 18 2018-01-02 Oximetry 98 % 2018-01-02 BMI 27.03 kg/m2 2018-01-02 Blood pressure systolic 145 mmHg 2018-01-02 Blood pressure diastolic 93 mmHg 2018-01-02 MEDICATIONS Medication Instructions Dosage Frequency Start Date End Date Duration Status Incruse Ellipta 62.5 MCG/INH Inhalation Once a day 1 puff 24h 23 Dec, 2016 Active Doxycycline Hyclate 100 mg Orally every 12 hrs 1 capsule with meals 12h Dec, Dec, 10 days Active Symbicort 160-4.5 MCG/ACT Inhalation Twice a day 2 puffs 12h Not- Taking Triamcinolone Acetonide 0.1 % Externally Twice a day- mix with silvadene 1 application to affected area Nov, 10 days Not-Taking Ventolin HFA 108 (90 Base) MCG/ACT Inhalation 4 times a day 2 puffs 6h Jan, 07 days Active Breo Ellipta 200-25 MCG/INH Inhalation Once a day 1 puff 24h Active Cetirizine HCl 10 mg Orally Once a day 1 tablet as needed 24h 30 Not -Taking Flonase Allergy Relief 50 MCG/ACT Nasally twice a day 1 spray in each nostril 12h 30 day(s) Active Ibuprofen 800 MG Orally 2 times a day 1 tablet with food or milk as needed 12h Nov, Active RESULTS No Results PROCEDURES No Known procedures INSTRUCTIONS MEDICATIONS ADMINISTERED No Known Medications MEDICAL (GENERAL) HISTORY Type Description Date Medical History Environmental allergies Medical History Chronic Bronchitis- PFT 03/2016- Normal Medical History Empysema with bleb xray 11/2015 Medical History TB- Active 04/2016- [facility] Surgical History bilateral knee reconstruction Surgical History bilateral tubal ligation (BTL) Hospitalization History PNEUMONIA Hospitalization History [facility] PNeumonia/TB--[facility] 04/26/16 Hospitalization History [facility]-pneumonia 05/31 Hospitalization History [facility] in [place] for TB 04/2016-2015
--- OUTSIDE RECORDS SUMMARY | 2018-12-16 01:39 | XMS REPORT ---
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 Active 53914786 Problem Over weight E66.3 Active 857034977 Problem Allergic rhinitis J30.9 Active 97448906 Problem Unspecified chronic bronchitis J42 Active 03656119 Problem Acute bronchitis, unspecified organism J20.9 Active 50831041 Problem Psoriasis L40.9 Active 2347010 Problem Subclinical hypothyroidism E03.9 Active 91601850 Problem Acute nasopharyngitis J00 Active 36415469 Problem Bronchitis, chronic obstructive w acute bronchitis J44.0 Active 705687519 Problem Chronic obstructive pulmonary disease, unspecified COPD type J44.9 Active 79077372 ALLERGIES No Known Allergies ENCOUNTERS Encounter Location Date Diagnosis [facility] [place] [address] [facility] [place] [id number], [place] [address] Jul, [facility] [address] [facility] [id number], [place] [id number] Jul, Acute bronchitis, unspecified organism J20.9 [facility] [address] [facility] [address] [address] [address] [id number], [place] [id number] Mar, Cough R05 ; Wheeze R06.2 ; Chronic obstructive pulmonary disease, unspecified COPD type J44.9 ; Bronchitis, chronic obstructive w acute bronchitis J44.0 and Allergic rhinitis J30.9 [facility] [address] [id number], [place] [id number] Mar, Allergic rhinitis J30.9 [facility] [address] [id number], [place] [id number] Mar, Psoriasis L40.9 [facility] [address] [id number][place] [address] Dec, Bronchitis, chronic obstructive w acute bronchitis J44.0 [facility] [address] [id number], [place] [id number] Nov, Rash R21 and Pain of right thumb M79.644 [facility] [place] [address] [id number], [place] [address] Aug, Chronic obstructive pulmonary disease, unspecified COPD type J44.9 [facility] [id number], [place] [id number] Jun, Chronic obstructive pulmonary disease, unspecified COPD type J44.9 ; Subclinical hypothyroidism E03.9 ; Elevated liver enzymes R74.8 and Encounter for immunization Z23 [facility] [place] [address] [facility] [place] [id number], [place] [address] Jun, Chronic obstructive pulmonary disease, unspecified COPD type J44.9 [facility] [address] [id number][place] [id number] Jun, Dental abscess K04.7 [facility] [id number][place] [id number] May, Unspecified chronic bronchitis J42 [facility] [address] [id number], [place] [id number] Jan, Acute nasopharyngitis J00 [facility] [address] [place] [address] AVE [id number], [place] [id number] Jan, TB (pulmonary tuberculosis) A15.0 ; Unspecified chronic bronchitis J42 and Tobacco use disorder, mild, 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 [facility] [address] [id number], [place] [id number] Jan, [facility] [id number], [place] [id number] Dec, Simple chronic bronchitis J41.[address] [id number], [place] [address]92[address] Dec, Simple chronic bronchitis J41.0 ; Shortness of breath R06.02 and TB (pulmonary tuberculosis) A15.[address] [id number], [place] [address] May, Anxiety associated with depression F41.[address] [id number], [place] [address] May, Active tuberculosis A15.9 ; Chest pain on breathing R07.1 ; Elevated liver enzymes R74.8 ; Insomnia, unspecified type G47.00 and Anxiety associated with depression F41.8 [facility] [address] [id number], [place] [id number] Apr, [facility] [place] [address]00565100[place], [place] [address] Apr, [facility] [place] [address]00565100[place], [place] [address] Apr, [address] [id number], [place] [id number] Apr, Lung nodule R91.1 and Pulmonary emphysema, unspecified emphysema type J43.[address] [id number], [place] [address] Apr, Pulmonary emphysema, unspecified emphysema type J43.9 and Abnormal chest xray R93.[address] [id number], [place] [id number] Mar, Unspecified chronic bronchitis J42 ; Tobacco use disorder, mild, 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 and Abnormal x-ray R93.[address] [id number], [place] [address] Mar, Seasonal allergies J30.2 ; Cough R05 and Post-nasal drainage R09.[address] [id number], [place] [address] 02 Mar, 2016 Cough R05 and Tobacco use disorder, mild, 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 [id number], [place] [address] February, Well woman exam Z01.419 and Breast cancer screening Z12.[address] [id number], [place] [address] February, [address] [id number], [place] [address] February, Elevated white blood cell count D72.829 and Elevated platelet count D47.[address] [id number], [place] [address] February, Wellness examination Z00.[address] [id number], [place] [address] 18 Jan, [address] [id number], [place] [address] Jan, Wheezing R06.2 ; Cough R05 ; Allergic rhinitis J30.9 ; Encounter for laboratory examination Z00.00 ; Over weight E66.3 and Tobacco use disorder, mild, 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 bferrisma PLAN OF CARE Activity Details Follow Up prn Reason: Future/Pending Procedure NEBULIZER TREATMENT Future/Pending Procedure ALBUTEROL UNIT DOSE FORM INHALED VITAL SIGNS Height 65 in 2018-07-26 Weight 159.0 lbs 2018-07-26 Temperature 99.0 degrees Fahrenheit 2018-07-26 Heart Rate 76 bpm 2018-07-26 Respiratory Rate 18 2018-07-26 Oximetry 95 % 2018-07-26 BMI 26.46 kg/m2 2018-07-26 Blood pressure systolic 123 mmHg 2018-07-26 Blood pressure diastolic 85 mmHg 2018-07-26 MEDICATIONS Medication Instructions Dosage Frequency Start Date End Date Duration Status Azithromycin 250 MG Orally Once a day 2 tabs today and 1 tab day 2-5 24h Jul, Jul, 5 day(s) Active Incruse Ellipta 62.5 MCG/INH Inhalation Once a day 1 puff 24h Dec, Active Flonase Allergy Relief 50 MCG/ACT Nasally twice a day 1 spray in each nostril 12h Active Ibuprofen 800 MG Orally 2 times a day 1 tablet with food or milk as needed 12h Active Cetirizine HCl 10 mg Orally Once a day 1 tablet as needed 24h Active Ventolin HFA 108 (90 Base) MCG/ACT Inhalation 4 times a day 2 puffs 6h Jan, 7 days Active Triamcinolone Acetonide 0.1 % Externally Twice a day- mix with silvadene 1 application to affected area Nov, 10 days Active Breo Ellipta 200-25 MCG/INH Inhalation Once a day 1 puff-rinse mouth after use 24h February, 30 days Active RESULTS No Results PROCEDURES Procedure Date Ordered Result Body Site ALBUTEROL INHAL UNIT DOSE 1 MG Jul 26, 2018 NEB/MDI RX INITIAL Jul 26, 2018 INSTRUCTIONS MEDICATIONS ADMINISTERED No Known Medications MEDICAL (GENERAL) HISTORY Type Description Date Medical History Environmental allergies Medical History Chronic Bronchitis- PFT 03/2016- Normal Medical History Empysema with bleb xray 11/2015 Medical History TB- Active 04/2016- [facility] Surgical History bilateral knee reconstruction Surgical History bilateral tubal ligation (BTL) Hospitalization History PNEUMONIA Hospitalization History [facility] PNeumonia/TB--[facility] 04/26/16 Hospitalization History [facility]neum[facility] 05[facility]31 Hospitalization History [facility] in [place] for TB 04/2016-2015
--- OUTSIDE RECORDS SUMMARY | 2018-12-16 01:39 | XMS REPORT ---
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 Active 65522194 Problem Over weight E66.3 Active 502445630 Problem Allergic rhinitis J30.9 Active 22330410 Problem Unspecified chronic bronchitis J42 Active 50358102 Problem Acute bronchitis, unspecified organism J20.9 Active 09447935 Problem Psoriasis L40.9 Active 4169150 Problem Subclinical hypothyroidism E03.9 Active 68657642 Problem Acute nasopharyngitis J00 Active 88474640 Problem Bronchitis, chronic obstructive w acute bronchitis J44.0 Active 779565088 Problem Chronic obstructive pulmonary disease, unspecified COPD type J44.9 Active 95073439 ALLERGIES No Information ENCOUNTERS Encounter Location Date Diagnosis [address] [id number], [place] [id number] Aug, Encounter for immunization Z23 [facility] [address] [facility] [id number][place] [address] Jul, [facility] [address] [facility] [address] [id number][place] [id number] Jul, Acute bronchitis, unspecified organism J20.[address] [id number][place] [id number] Mar, Cough R05 ; Wheeze R06.2 ; Chronic obstructive pulmonary disease, unspecified COPD type J44.9 ; Bronchitis, chronic obstructive w acute bronchitis J44.0 and Allergic rhinitis J30.9 [facility] [address] [facility][1] [id number], [place] [id number] Mar, Allergic rhinitis J30.9 [facility] [address] [facility] [address] [id number], [place] [id number] Mar, Psoriasis L40.[address] [id number] [id number] Dec, Bronchitis, chronic obstructive w acute bronchitis J44.[address] [id number], [place] [id number] Nov, Rash R21 and Pain of right thumb M79.644 [place] [address]00565[address], [place] [address] Aug, Chronic obstructive pulmonary disease, unspecified COPD type J44.9 [address]00565100[place], [place] [id number] Jun, Chronic obstructive pulmonary disease, unspecified COPD type J44.9 ; Subclinical hypothyroidism E03.9 ; Elevated liver enzymes R74.8 and Encounter for immunization Z23 [place] [address]00565100[place], [place] [address] Jun, Chronic obstructive pulmonary disease, unspecified COPD type J44.[address] [id number], [place] [id number] Jun, Dental abscess K04.[id number] [place] [id number] May, Unspecified chronic bronchitis J42 [address] [id number], [place] [id number] Jan, Acute nasopharyngitis J00 [id number] [place] [id number] Jan, TB (pulmonary tuberculosis) A15.0 ; Unspecified chronic bronchitis J42 and Tobacco use disorder, mild, 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 [facility] [address] [id number], [place] [address] Jan, [facility] [address] [address] [id number], [place] [id number] Dec, Simple chronic bronchitis J41.0 [facility] [address] [id number], [place] [id number] Dec, Simple chronic bronchitis J41.0 ; Shortness of breath R06.02 and TB (pulmonary tuberculosis) A15.0 [facility] [address] [place] [address] AVE [id number], [place] [id number] May, Anxiety associated with depression F41.8 [facility] [address] [facility] [address] [id number], [place] [id number] May, Active tuberculosis A15.9 ; Chest pain on breathing R07.1 ; Elevated liver enzymes R74.8 ; Insomnia, unspecified type G47.00 and Anxiety associated with depression F41.8 [facility] [address] [facility][1] [id number], [place] [id number] Apr, [facility] [address]65100[place], [place] [address] Apr, [facility] [address] [place] [id number], [place] [address] Apr, [facility] [address] [place] [address] AVE [id number], [place] [id number] Apr, Lung nodule R91.1 and Pulmonary emphysema, unspecified emphysema type J43.9 [facility] [address] [id number], [place] [id number] Apr, Pulmonary emphysema, unspecified emphysema type J43.9 and Abnormal chest xray R93.8 [facility] [address] [id number], [place] [id number] Mar, Unspecified chronic bronchitis J42 ; Tobacco use disorder, mild, 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 and Abnormal x-ray R93.8 [facility] [address] [id number], [place] [id number] 08 Mar, 2016 Seasonal allergies J30.2 ; Cough R05 and Post-nasal drainage R09.82 [facility] TOOTIE Levy[address] [place] [address] AV [id number], [place] [id number] 02 Mar, 2016 Cough R05 and Tobacco use disorder, mild, 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 [facility] [address] [id number], [place] [id number] February, Well woman exam Z01.419 and Breast cancer screening Z12.[address] [id number], [place] [id number] February, [facility] [id number] [place] [id number] February, Elevated white blood cell count D72.829 and Elevated platelet count D47.[address] [id number], [place] [id number] February, Wellness examination Z00.00 [facility] [address] [id number], [place] [id number] 18 Jan, [address] [id number], [place] [address] Jan, Wheezing R06.2 ; Cough R05 ; Allergic rhinitis J30.9 ; Encounter for laboratory examination Z00.00 ; Over weight E66.3 and Tobacco use disorder, mild, 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 [facility] [address] [facility] [id number], [place] [address] 04 Jan, [address] [id number], [place] [id number] Jan, Unspecified infectious disease B99.9 and Pneumonia in diseases classified elsewhere J17 [address] [id number], [place] [id number] Jan, Wheezing R06.2 ; Cough R05 and Allergic rhinitis J30.9 IMMUNIZATIONS Vaccine Route Administration Date Status FLULAVAL QUAD 0.5ML (6 MO & UP) 2017 IM Intramuscular Aug 27, 2018 Administered SOCIAL HISTORY Never Assessed REASON FOR VISIT Flu shot bferrisma PLAN OF CARE VITAL SIGNS MEDICATIONS Unknown Medications RESULTS No Results PROCEDURES Procedure Date Ordered Result Body Site FLULAVAL QUAD 0.5ML (6 MO AND UP) 2018 Aug 27, 2018 SINGLE IMMUNIZATION ADMIN Aug 27, 2018 INSTRUCTIONS MEDICATIONS ADMINISTERED No Known Medications MEDICAL (GENERAL) HISTORY Type Description Date Medical History Environmental allergies Medical History Chronic Bronchitis- PFT 03/2016- Normal Medical History Empysema with bleb xray 11/2015 Medical History TB- Active 04/2016- [facility] Surgical History bilateral knee reconstruction Surgical History bilateral tubal ligation (BTL) Hospitalization History PNEUMONIA Hospitalization History RUL PNeumonia/TB--[facility]ia [facility] 04/26/16 Hospitalization History [facility]-pneumonia 05/31 Hospitalization History [facility] in [place] for TB 04/2016-2015
--- OUTSIDE RECORDS SUMMARY | 2018-12-16 01:40 | XMS REPORT ---
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 Active 03997877 Problem Over weight E66.3 Active 369509260 Problem Bronchitis, chronic obstructive w acute bronchitis J44.0 Active 567279920 Problem Chronic obstructive pulmonary disease, unspecified COPD type J44.9 Active 70450947 Problem Simple chronic bronchitis J41.0 Active 59982440 Problem TB (pulmonary tuberculosis) A15.0 Active 281518622 Problem Subclinical hypothyroidism E03.9 Active 73500684 Problem Acute nasopharyngitis J00 Active 75349218 ALLERGIES No Known Allergies ENCOUNTERS Encounter Location Date Diagnosis [address] [address] [id number], [place] [id number] Dec, Bronchitis, chronic obstructive w acute bronchitis J44.[address] [id number], [place] [id number] Nov, Rash R21 and Pain of right thumb M79.644 [facility] [address] [facility] [id number], [place] [address] Aug, Chronic obstructive pulmonary disease, unspecified COPD type J44.9 [facility] [address] [id number], [place] [id number] Jun, Chronic obstructive pulmonary disease, unspecified COPD type J44.9 ; Subclinical hypothyroidism E03.9 ; Elevated liver enzymes R74.8 and Encounter for immunization Z23 [facility] [address] [facility] [id number], [place] [address]88[address] Jun, Chronic obstructive pulmonary disease, unspecified COPD type J44.9 [facility] [address] [id number], [place] [id number] Jun, Dental abscess K04.7 [facility] [address] [facility] [address] [id number], [place] [id number] May, Unspecified chronic bronchitis J42 [facility] [address] [facility] [address] [id number], [place] [id number] Jan, Acute nasopharyngitis J00 [facility] [address] [place] [address] [id number], [place] [id number] Jan, TB (pulmonary tuberculosis) A15.0 ; Unspecified chronic bronchitis J42 and Tobacco use disorder, mild, 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 [facility] [address] [facility] [address] [id number], [place] [id number] Jan, [facility] [address] [facility] [address] [id number], [place] [id number] Dec, Simple chronic bronchitis J41.0 [facility] [address] [facility] [address] [id number], [place] [id number] Dec, Simple chronic bronchitis J41.0 ; Shortness of breath R06.02 and TB (pulmonary tuberculosis) A15.0 [facility] [address] [facility] [address] [id number], [place] [id number] May, Anxiety associated with depression F41.8 [facility] [address] [id number], [place] [id number] May, Active tuberculosis A15.9 ; Chest pain on breathing R07.1 ; Elevated liver enzymes R74.8 ; Insomnia, unspecified type G47.00 and Anxiety associated with depression F41.8 [facility] [address] [facility] [id number] [place] [id number] Apr, [facility] [address]00565100[place], [place] [address] Apr, [facility] [address] [facility] [id number] [place] [address] Apr, [facility] [address] [place] [address] AVE [id number], [place] [id number] Apr, Lung nodule R91.1 and Pulmonary emphysema, unspecified emphysema type J43.9 [facility] [address] [id number], [place] [id number] Apr, Pulmonary emphysema, unspecified emphysema type J43.9 and Abnormal chest xray R93.8 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 [facility] [address] [id number], [place] [id number] February, Well woman exam Z01.419 and Breast cancer screening Z12.39 [facility] [address] [place] [address] AV [id number], [place] [id number] February, [facility] [address] [place] [address] AVE [id number], [place] [address] February, Elevated white blood cell count D72.829 and Elevated platelet count D47.3 [facility] [address] [place] [address] AV [id number], [place] [id number] February, Wellness examination Z00.00 [facility] [address] [place] [address] [id number], [place] [id number] Jan, [facility] [address] [facility] [address] [id number] [place] [address] Jan, Wheezing R06.2 ; Cough R05 ; Allergic rhinitis J30.9 ; Encounter for laboratory examination Z00.00 ; Over weight E66.3 and Tobacco use disorder, mild, 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 [facility] [address] [facility] [id number] [place] [address] Jan, [facility] [address] [facility] [address] [id number], [place] [id number] Jan, Unspecified infectious disease B99.9 and Pneumonia in diseases classified elsewhere J17 [facility] Cam[address] [place] [address] AVE [id number], [place] [id number] Jan, Wheezing R06.2 ; Cough R05 and Allergic rhinitis J30.9 IMMUNIZATIONS No Known Immunizations SOCIAL HISTORY Never Assessed REASON FOR VISIT Swollen face-c/o left side facial swelling/pain, started last night, voices she does have bad teeth. desi kohler PLAN OF CARE Activity Details Follow Up prn Reason:no improvemant VITAL SIGNS Height 66 in 2017-06-17 Weight 151.0 lbs 2017-06-17 Temperature 98.2 degrees Fahrenheit 2017-06-17 Heart Rate 85 bpm 2017-06-17 Respiratory Rate 22 2017-06-17 BMI 24.37 kg/m2 2017-06-17 Blood pressure systolic 132 mmHg 2017-06-17 Blood pressure diastolic 80 mmHg 2017-06-17 MEDICATIONS Medication Instructions Dosage Frequency Start Date End Date Duration Status Amoxicillin 500 mg Orally every 12 hrs 2 tablet 12h Jun, Jun, 10 days Active Symbicort 160-4.5 MCG/ACT Inhalation Twice a day 2 puffs 12h 20 Aug, 2017 30 days Active Cetirizine HCl 10 mg Orally Once a day 1 tablet as needed 24h 30 Active Ventolin HFA 108 (90 Base) MCG/ACT Inhalation 3 times a day 2 puffs as needed 8h 18 Jan, 2016 Active RESULTS No Results PROCEDURES No Known procedures INSTRUCTIONS MEDICATIONS ADMINISTERED No Known Medications MEDICAL (GENERAL) HISTORY Type Description Date Medical History Environmental allergies Medical History Chronic Bronchitis- PFT 03/2016- Normal Medical History Empysema with bleb xray 11/2015 Medical History TB- Active 04/2016- [facility] Surgical History bilateral knee reconstruction Surgical History bilateral tubal ligation (BTL) Hospitalization History PNEUMONIA Hospitalization History [facility] PNeumonia/TB--[facility]ia [facility] 04/26/16 Hospitalization History [facility]-pneumonia 05/31 Hospitalization History Via [facility] el[facility] in [place] for TB 04/2016-2015
--- OUTSIDE RECORDS SUMMARY | 2018-12-16 01:40 | XMS REPORT ---
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 Active 35203693 Problem Chronic obstructive pulmonary disease, unspecified COPD type J44.9 Active 19155787 Problem Subclinical hypothyroidism E03.9 Active 99804322 Problem TB (pulmonary tuberculosis) A15.0 Active 314798168 Problem Anxiety associated with depression F41.8 Active 544045250 Problem Acute nasopharyngitis J00 Active 20873137 Problem Simple chronic bronchitis J41.0 Active 99308927 ALLERGIES No Known Allergies SOCIAL HISTORY Never Assessed PLAN OF CARE Activity Details Follow Up 4 Weeks Reason:new inhaler f/u VITAL SIGNS Height 66 in 2017-01-05 Weight 162.7 lbs 2017-01-05 Temperature 99.3 degrees Fahrenheit 2017-01-05 Heart Rate 108 bpm 2017-01-05 Respiratory Rate 22 2017-01-05 BMI 26.26 kg/m2 2017-01-05 Blood pressure systolic 128 mmHg 2017-01-05 Blood pressure diastolic 84 mmHg 2017-01-05 MEDICATIONS Medication Instructions Dosage Frequency Start Date End Date Duration Status Cetirizine HCl 10 mg Orally Once a day 1 tablet as needed 24h 30 day( s) Active Flonase Allergy Relief 50 MCG/ACT Nasally twice a day 1 spray in each nostril 12h 30 day(s) Active Incruse Ellipta 62.5 MCG/INH Inhalation Once a day (PALS) 1 puff Dec, Active Symbicort 160-4.5 MCG/ACT Inhalation Twice a day (PALS) 2 puffs Active Ventolin HFA 108 (90 Base) MCG/ACT Inhalation 3 times a day (PALS) 2 puffs as needed Jan, Active RESULTS No Results PROCEDURES No Known procedures IMMUNIZATIONS No Known Immunizations MEDICAL (GENERAL) HISTORY Type Description Date Medical History Environmental allergies Medical History Chronic Bronchitis- PFT 03/2016- Normal Medical History Empysema with bleb xray 11/2015 Medical History TB- Active 04/2016- [facility] Surgical History bilateral knee reconstruction Surgical History bilateral tubal ligation (BTL) Hospitalization History PNEUMONIA Hospitalization History RUL PNeumonia/TB--Via [facility] 04/26/16 Hospitalization History [facility]-pneumonia 05/31 Hospitalization History [facility] and [facility] in [place] for TB 04/2016-2015
--- OUTSIDE RECORDS SUMMARY | 2018-12-16 01:40 | XMS REPORT ---
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
--- OUTSIDE RECORDS SUMMARY | 2018-12-16 01:40 | XMS REPORT ---
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 Active 46765430 Problem Over weight E66.3 Active 584069516 Problem Bronchitis, chronic obstructive w acute bronchitis J44.0 Active 737169596 Problem Chronic obstructive pulmonary disease, unspecified COPD type J44.9 Active 88392728 Problem Simple chronic bronchitis J41.0 Active 53848959 Problem TB (pulmonary tuberculosis) A15.0 Active 961856847 Problem Subclinical hypothyroidism E03.9 Active 22581864 Problem Acute nasopharyngitis J00 Active 13420431 ALLERGIES No Information ENCOUNTERS Encounter Location Date Diagnosis [address] [id number] [id number] Dec, Bronchitis, chronic obstructive w acute bronchitis J44.[address] [id number][place] [address] Nov, Rash R21 and Pain of right thumb M79.644 [facility] [address] [facility] [id number], [place] [address] Aug, Chronic obstructive pulmonary disease, unspecified COPD type J44.9 [facility] [address] [id number][place] [phone] Jun, Chronic obstructive pulmonary disease, unspecified COPD type J44.9 ; Subclinical hypothyroidism E03.9 ; Elevated liver enzymes R74.8 and Encounter for [facility] Z[address] [facility] [address] [facility] [id number], [place] [address] Jun, Chronic obstructive pulmonary disease, unspecified COPD type J44.9 [facility] [address] [facility] [address] [id number][place] [id number] Jun, Dental abscess K04.7 [facility] [address] [facility] [address] [id number][place] [id number] May, Unspecified chronic bronchitis J[address] [facility] [facility] [address] [facility] [address] [id number][place] [id number] Jan, Acute nasopharyngitis J00 [facility] [address] [place] [id number] [id number] Jan, TB (pulmonary tuberculosis) A15.0 ; Unspecified chronic bronchitis J42 and Tobacco use disorder, mild, 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 [facility] [address] [facility] [address] [id number], [place] [id number] Jan, [facility] [address] [facility] [address] [id number], [place] [phone] Dec, Simple chronic bronchitis J41.[address] [facility] [address] [place] [address] [id number] [address] Dec, Simple chronic bronchitis J41.0 ; Shortness of breath R06.02 and TB (pulmonary tuberculosis) A15.[address] [facility] [address] [facility] [address] [id number], [place] [id number] May, Anxiety associated with depression F41.8 [facility] [address] [facility] [address] [id number], [place] [phone] May, Active tuberculosis A15.9 ; Chest pain on breathing R07.1 ; Elevated liver enzymes R74.8 ; Insomnia, unspecified type G47.00 and Anxiety associated with depression F41.8 [facility] [address] [id number][place] [id number] Apr, [facility] [address] [id number] [place] [address] Apr, [facility] [address] [facility] [id number] [place] [address] Apr, [facility] [address] [id number], [place] [id number] Apr, Lung nodule R91.1 and Pulmonary emphysema, unspecified emphysema type J43.9 [facility] [address] [id number][place] [id number] Apr, Pulmonary emphysema, unspecified emphysema type J43.9 and Abnormal chest xray R93.8 [facility] [address] [id number][place] [phone] Mar, Unspecified chronic bronchitis J42 ; Tobacco use disorder, mild, 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 and Abnormal x-ray R93.8 [facility] [address] [facility] [address] [id number], [place] [phone] Mar, Seasonal allergies J30.2 ; Cough R05 and Post-nasal drainage [address]09.[address] [facility] [id number][place] [phone] Mar, Cough R05 and Tobacco use disorder, mild, 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 [facility] [address] [id number], [place] [address] February, Well woman exam Z01.419 and Breast cancer screening Z12.[address] [address] [id number], [place] [phone] February, [facility] [address] [id number], [place] [address] February, Elevated white blood cell count D72.829 and Elevated platelet count D47.3 [facility] [address] [id number][place] [id number] February, Wellness examination Z00.[address] [facility] [id number], [place] [phone] Jan, [facility] [address] [address] [id number] [place] [address] Jan, Wheezing R06.2 ; Cough R05 ; Allergic rhinitis J30.9 ; Encounter for laboratory examination Z00.00 ; Over weight E66.3 and Tobacco use disorder, mild, 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 [facility] [address] [facility] [id number] [place] [address] Jan, 2016 [facility] [address] [place] [address] [address] [id number], [place] [address] Jan, Unspecified infectious disease B99.9 and Pneumonia in diseases classified elsewhere J17 [address] [id number], [place] [address] Jan, Wheezing R06.2 ; Cough R05 and Allergic rhinitis J30.9 IMMUNIZATIONS No Known Immunizations SOCIAL HISTORY Never Assessed REASON FOR VISIT SYMBICORT note PLAN OF CARE VITAL SIGNS MEDICATIONS Medication Instructions Dosage Frequency Start Date End Date Duration Status Advair Diskus 250-50 MCG/DOSE Inhalation Twice a day 1 puff 12h Jun, 30 days Active RESULTS No Results PROCEDURES No Known procedures INSTRUCTIONS MEDICATIONS ADMINISTERED No Known Medications MEDICAL (GENERAL) HISTORY Type Description Date Medical History Environmental allergies Medical History Chronic Bronchitis- PFT 03/2016- Normal Medical History Empysema with bleb xray 11/2015 Medical History TB- Active 04/2016- [facility] Surgical History bilateral knee reconstruction Surgical History bilateral tubal ligation (BTL) Hospitalization History PNEUMONIA Hospitalization History RUL PNeumonia/TB--[facility] 04/26/16 Hospitalization History [facility]-pneumonia 05/31 Hospitalization History [facility] in [place] for TB 04/2016-2015
--- OUTSIDE RECORDS SUMMARY | 2018-12-16 01:40 | XMS REPORT ---
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 Active Medications Medication Code System Code Instructions Start Date End Date Status Dosage Symbicort [facility] [address]-84 160-4.5 MCG/ACT Inhalation Twice a day 2 puffs Rifampin [facility] [address]-06 300 MG Orally Once a day 2 tablets Ethambutol HCl [facility] [address]-07 400 MG Orally Once a day May 05, 2016 4 tablet Pyridoxine HCl [facility] [address]-96 50 mg Orally Once a day May 05, 2016 1 tablets Incruse Ellipta [facility] [address]-43 62.5 MCG/INH Inhalation Once a day free trial sample April 12, 2016 1 puff Flonase Allergy Relief [facility] [address]-94 50 MCG/ACT Nasally twice a day 1 spray in each nostril Cetirizine HCl [facility] [address]-58 10 mg Orally Once a day 1 tablet as needed Womens Daily Formula [facility] [address] - Orally Once a day 1 tablet Aspirin [facility] [address]-00 325 MG Orally Once a day 2 tablet Hydrocodone-Acetaminophen [facility] [address]-64 5-325 MG Orally every 4 hrs (#60 ) May 05, 2016 1 tablet as needed Pyrazinamide [facility] [address]-99 500 MG Orally Once a day May 05, 2016 4 tablet Ventolin HFA [facility] [address]-01 108 (90 Base) MCG/ACT Inhalation 4 times a day February 01, 2016 2 puffs as needed Isoniazid [facility] [address]-17 300 MG Orally May 05, 2016 not defined Results No Known Results Summary Purpose eClinicalWorks Submission
--- OUTSIDE RECORDS SUMMARY | 2018-12-16 01:40 | XMS REPORT ---
Author Author LILY PATIÑO 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 Active 16216942 Problem Over weight E66.3 Active 221672126 Problem Allergic rhinitis J30.9 Active 75347650 Problem Psoriasis L40.9 Active 4945788 Problem Bronchitis, chronic obstructive w acute bronchitis J44.0 Active 237006602 Problem Acute nasopharyngitis J00 Active 72332203 Problem Simple chronic bronchitis J41.0 Active 85857803 Problem Chronic obstructive pulmonary disease, unspecified COPD type J44.9 Active 05178020 Problem Subclinical hypothyroidism E03.9 Active 26246322 ALLERGIES No Known Allergies ENCOUNTERS Encounter Location Date Diagnosis [address] [id number], [place] [id number] Mar, Cough R05 ; Wheeze R06.2 ; Chronic obstructive pulmonary disease, unspecified COPD type J44.9 ; Bronchitis, chronic obstructive w acute bronchitis J44.0 and Allergic rhinitis J30.9 [facility] [address] [id number], [place] [id number] Mar, Allergic rhinitis J30.9 [facility] [address] [facility] [id number][place] [id number] Mar, Psoriasis L40.[address] [id number], [place] [address] Dec, Bronchitis, chronic obstructive w acute bronchitis J44.[address] [facility] [address] [id number], [place] [address] Nov, Rash R21 and Pain of right thumb M79.644 [facility] [address] [facility] [id number] [place] [address] Aug, Chronic obstructive pulmonary disease, unspecified COPD type J44.[address] [id number], [place] [address] Jun, Chronic obstructive pulmonary disease, unspecified COPD type J44.9 ; Subclinical hypothyroidism E03.9 ; Elevated liver enzymes R74.8 and Encounter for immunization Z23 [facility] [address] [facility] [id number], [place] [address] Jun, Chronic obstructive pulmonary disease, unspecified COPD type J44.9 [facility] [id number], [place] [id number] Jun, Dental abscess K04.7 [facility] [id number], [place] [address] May, Unspecified chronic bronchitis J42 [facility] [id number], [place] [address] Jan, Acute nasopharyngitis J00 [facility] [id number], [place] [id number] Jan, TB (pulmonary tuberculosis) A15.0 ; Unspecified chronic bronchitis J42 and Tobacco use disorder, mild, 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 [facility] [address] [id number], [place] [id number] Jan, [facility] [address] [id number], [place] [id number] Dec, Simple chronic bronchitis J41.0 [facility] [address] [id number], [place] [id number] Dec, Simple chronic bronchitis J41.0 ; Shortness of breath R06.02 and TB (pulmonary tuberculosis) A15.[address] [id number], [place] [id number] May, Anxiety associated with depression F41.8 [address] [id number], [place] [address] May, Active tuberculosis A15.9 ; Chest pain on breathing R07.1 ; Elevated liver enzymes R74.8 ; Insomnia, unspecified type G47.00 and Anxiety associated with depression F41.8 [facility] [address] [facility] [id number][place] [id number] Apr, [facility] [address] [id number], [place] [address] Apr, [facility] [address] [id number], [place] [address] Apr, [address] [id number], [place] [address] Apr, Lung nodule R91.1 and Pulmonary emphysema, unspecified emphysema type J43.[address] [id number], [place] [address] Apr, Pulmonary emphysema, unspecified emphysema type J43.9 and Abnormal chest xray R93.[address] [id number], [place] [address] Mar, Unspecified chronic bronchitis J42 ; Tobacco use disorder, mild, 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 and Abnormal x-ray R93.[address] [id number], [place] [address] Mar, Seasonal allergies J30.2 ; Cough R05 and Post-nasal drainage R09.[address] [id number], [place] [address] Mar, Cough R05 and Tobacco use disorder, mild, 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 [id number], [place] [address] February, Well woman exam Z01.419 and Breast cancer screening Z12.[address] [id number], [place] [id number] February, [address] [id number], [place] [id number] February, Elevated white blood cell count D72.829 and Elevated platelet count D47.[address] [id number], [place] [address] February, Wellness examination Z00.[address] [id number], [place] [address] Jan, [address] [id number], [place] [address] Jan, Wheezing R06.2 ; Cough R05 ; Allergic rhinitis J30.9 ; Encounter for laboratory examination Z00.00 ; Over weight E66.3 and Tobacco use disorder, mild, 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 Brionna PETERSON PLAN OF CARE Activity Details Follow Up 1 Week Reason:if rash has not improved VITAL SIGNS Height 66 in 2017-11-21 Weight 157.3 lbs 2017-11-21 Temperature 97.5 degrees Fahrenheit 2017-11-21 Heart Rate 85 bpm 2017-11-21 Respiratory Rate 18 2017-11-21 Oximetry 99 % 2017-11-21 BMI 25.39 kg/m2 2017-11-21 Blood pressure systolic 142 mmHg 2017-11-21 Blood pressure diastolic 84 mmHg 2017-11-21 MEDICATIONS Medication Instructions Dosage Frequency Start Date End Date Duration Status Ventolin HFA 108 (90 Base) MCG/ACT Inhalation 3 times a day 2 puffs as needed 8h 18 Jan, 2016 Active Incruse Ellipta 62.5 MCG/INH Inhalation Once a day 1 puff 24h 23 Dec, 2016 Active Symbicort 160-4.5 MCG/ACT Inhalation Twice a day 2 puffs 12h Active Triamcinolone Acetonide 0.1 % Externally Twice a day- mix with silvadene 1 application to affected area Nov, 10 days Active Flonase Allergy Relief 50 MCG/ACT Nasally twice a day 1 spray in each nostril 12h 30 day(s) Active Ibuprofen 800 MG Orally 2 times a day 1 tablet with food or milk as needed 12h Nov, Active Silvadene 1 % Externally Once a day 1 application to affected area 24h Nov, Nov, 10 days Active Cetirizine HCl 10 mg Orally Once a day 1 tablet as needed 24h 30 Active RESULTS No Results PROCEDURES No Known procedures INSTRUCTIONS MEDICATIONS ADMINISTERED No Known Medications MEDICAL (GENERAL) HISTORY Type Description Date Medical History Environmental allergies Medical History Chronic Bronchitis- PFT 03/2016- Normal Medical History Empysema with bleb xray 11/2015 Medical History TB- Active 04/2016- [facility] Surgical History bilateral knee reconstruction Surgical History bilateral tubal ligation (BTL) Hospitalization History PNEUMONIA Hospitalization History [facility]UL PNeumonia/TB--[facility] 04/26/[address] [facility] 05/31 Hospitalization History Via [facility] in [place] for TB 04/2016-2015
--- OUTSIDE RECORDS SUMMARY | 2018-12-16 01:40 | XMS REPORT ---
Author LILY Duff [facility] eClinicalWorks Address Unknown Phone Unavailable Care Team Providers Care Regional Environmental Manager Name Role Phone LILY PATIÑO CP Unavailable Allergies, Adverse Reactions, Alerts Substance Reaction Event Type N.K.D.A. 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 Active Problem Allergic rhinitis J30.9 Active Assessment Allergic rhinitis J30.9 Active Assessment Encounter for laboratory examination Z00.00 Active Assessment Wheezing R06.2 Active Assessment Cough R05 Active Medications Medication Code System Code Instructions Start Date End Date Status Dosage Cetirizine HCl [facility] [address]-69 10 mg Orally Once a day 1 tablet as needed Symbicort [facility] [address]-72 160-4.5 MCG/ACT Inhalation Twice a day 2 puffs Flonase Allergy Relief [facility] [address]-72 50 MCG/ACT Nasally twice a day 1 spray in each nostril Albuterol Sulfate HFA [facility] [address]-83 108 (90 Base) MCG/ACT Inhalation every 4 hrs- rescue only 2 puffs as needed Procedures Procedure Coding System Code Date Office Visit, Est Pt., Level 4 CPT-4 05391 January 29, 2016 MEASURE BLOOD OXYGEN LEVEL CPT-4 07043 January 29, 2016 Vital Signs Date/Time: January 29, 2016 Temperature 98.4 F Weight 183.4 lbs Height 66 in Oximetry 99 % Blood Pressure Diastolic 70 mmHg Blood Pressure Systolic 118 mmHg Cardiac Monitoring Heart Rate 99 bpm BMI 29.60 Index Results No Known Results Summary Purpose eClinicalWorks Submission
--- OUTSIDE RECORDS SUMMARY | 2018-12-16 01:40 | XMS REPORT ---
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 Active 21265318 Problem Over weight E66.3 Active 331026929 Problem Bronchitis, chronic obstructive w acute bronchitis J44.0 Active 315487717 Problem Chronic obstructive pulmonary disease, unspecified COPD type J44.9 Active 03571518 Problem Simple chronic bronchitis J41.0 Active 84097205 Problem TB (pulmonary tuberculosis) A15.0 Active 535899331 Problem Subclinical hypothyroidism E03.9 Active 52204025 Problem Acute nasopharyngitis J00 Active 43062690 ALLERGIES No Information ENCOUNTERS Encounter Location Date Diagnosis [address] [id number] [id number] Dec, Bronchitis, chronic obstructive w acute bronchitis J44.[address] [id number] [place] [id number] Nov, Rash R21 and Pain of right thumb M79.644 [facility] [place] [address] [facility] [id number], [place] [address] Aug, Chronic obstructive pulmonary disease, unspecified COPD type J44.9 [facility] [address] [id number] [place] [id number] Jun, Chronic obstructive pulmonary disease, unspecified COPD type J44.9 ; Subclinical hypothyroidism E03.9 ; Elevated liver enzymes R74.8 and Encounter for immunization Z23 [facility] [address] [facility] [id number][place] [address] Jun, Chronic obstructive pulmonary disease, unspecified COPD type J44.9 [facility] [address] [address] [id number] CREEK[place] [id number] Jun, Dental abscess K04.7 [facility] [address] [id number] CREEK[place] [id number] May, Unspecified chronic bronchitis J42 [facility] [address] [id number] CREEK[place] [id number] Jan, Acute nasopharyngitis J00 [facility] [address] [place] [id number] [id number] Jan, TB (pulmonary tuberculosis) A15.0 ; Unspecified chronic bronchitis J42 and Tobacco use disorder, mild, 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 [facility] [address] [facility] [address] [id number] [place] [id number] Jan, [facility] [address] [id number] CREEK[place] [id number] Dec, Simple chronic bronchitis J41.0 [facility] [address] [place] [address] [id number] [place] [id number] Dec, Simple chronic bronchitis J41.0 ; Shortness of breath R06.02 and TB (pulmonary tuberculosis) A15.0 [facility] [address] [id number] CREEK[place] [id number] May, Anxiety associated with depression F41.8 [facility] [address] [id number] [place]REEK[place] [id number] May, Active tuberculosis A15.9 ; Chest pain on breathing R07.1 ; Elevated liver enzymes R74.8 ; Insomnia, unspecified type G47.00 and Anxiety associated with depression F41.8 [facility] [address] [id number] [id number] Apr, [facility] [place] [address] [id number] [place] [address] Apr, [facility] [address] [facility] [id number] [place] [address] Apr, [facility] [address] [id number] CREEK[place] [id number] Apr, Lung nodule R91.1 and Pulmonary emphysema, unspecified emphysema type J43.9 [facility] [address] [id number] [place] [id number] Apr, Pulmonary emphysema, unspecified emphysema type J43.9 and Abnormal chest xray R93.8 [facility] [address] [id number] CREEK[place] [id number] Mar, Unspecified chronic bronchitis J42 ; Tobacco use disorder, mild, 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 [facility] [address] [facility] [address] [id number] [place]REEK[place] [id number] February, Well woman exam Z01.419 and Breast cancer screening Z12.39 [facility] [address] [id number] [place]REEK[place] [id number] February, [facility] [address] [facility] [address] [id number] CREEK[place] [id number] February, Elevated white blood cell count D72.829 and Elevated platelet count D47.3 [facility] [address] [id number] CREEK[place] [id number] February, Wellness examination Z00.00 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 [facility] [place] [address] [facility] [id number] [place] [address] Jan, [facility] [address] [place] [address] AVE [id number] [place] [id number] Jan, Unspecified infectious disease B99.9 and Pneumonia in diseases classified elsewhere J17 [address] [id number] [place]REEK, [place] [id number] Jan, Wheezing R06.2 ; Cough R05 and Allergic rhinitis J30.9 IMMUNIZATIONS No Known Immunizations SOCIAL HISTORY Never Assessed REASON FOR VISIT SYMBICORT Note PLAN OF CARE VITAL SIGNS MEDICATIONS Medication Instructions Dosage Frequency Start Date End Date Duration Status Incruse Ellipta 62.5 MCG/INH Inhalation Once a day 1 puff 24h 23 Dec, 2016 Active Cetirizine HCl 10 mg Orally Once [...] xray 11/2015 Medical History TB- Active 04/2016- [facility] Surgical History bilateral knee reconstruction Surgical History bilateral tubal ligation (BTL) Hospitalization History PNEUMONIA Hospitalization History RUL PNeumonia/TB--[facility] 04/26/16 Hospitalization History Caitlin-pneumonia 05/31 Hospitalization History Via [facility] eliu [facility] in [place] for TB 04/2016-2015
--- OUTSIDE RECORDS SUMMARY | 2018-12-16 01:41 | XMS REPORT ---
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
--- OUTSIDE RECORDS SUMMARY | 2018-12-16 01:41 | XMS REPORT ---
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
--- OUTSIDE RECORDS SUMMARY | 2018-12-16 01:41 | XMS REPORT ---
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
--- OUTSIDE RECORDS SUMMARY | 2018-12-16 01:41 | XMS REPORT ---
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 Active Problem Allergic rhinitis J30.9 Active Assessment Wellness examination Z00.00 Active Medications No Known Medications Procedures Procedure Coding System Code Date COMPLETE CBC W/AUTO DIFF WBC CPT-4 18244 February 15, 2016 LIPID PANEL CPT-4 72985 February 15, 2016 ASSAY THYROID STIM HORMONE CPT-4 55293 February 15, 2016 VENIPUNCT, ROUTINE* CPT-4 08271 February 15, 2016 COMPREHEN METABOLIC PANEL CPT-4 87544 February 15, 2016 Results Name Result Date Reference Range Unit Abnormality Flag LIPID PANEL ----HDL Cholesterol 66 98690445 >39 mg/dL ----VLDL Cholesterol Mian 24 57093191 5-40 mg/dL ----LDL Cholesterol Calc 122 36789992 0-99 mg/dL H ----Cholesterol, Total 212 20939581 100-199 mg/dL H ----Triglycerides 118 76130127 0-149 mg/dL CMP ----Globulin, Total 3.4 61850163 1.5-4.5 g/dL ----eGFR If Africn Am 115 65129486 >59 mL/min/1.73 ----eGFR If NonAfricn Am 100 04238837 >59 mL/min/1.73 ----Albumin, Serum 3.9 95343546 3.5-5.5 g/dL ----Sodium, Serum 139 86855391 134-144 mmol/L ----Protein, Total, Serum 7.3 02688118 6.0-8.5 g/dL ----BUN/Creatinine Ratio 12 20160215 9-23 ----Calcium, Serum 9.7 19460631 8.7-10.2 mg/dL ----AST (SGOT) 10 20160215 0-40 IU/L ----Glucose, Serum 95 20160215 65-99 mg/dL ----Alkaline Phosphatase, S 117 20160215 39-117 IU/L ----Bilirubin, Total 0.2 20160215 0.0-1.2 mg/dL ----Creatinine, Serum 0.69 20160215 0.57-1.00 mg/dL ----A/G Ratio 1.1 20160215 1.1-2.5 ----BUN 8 20160215 6-24 mg/dL ----Carbon Dioxide, Total 22 20160215 18-29 mmol/L ----ALT (SGPT) 13 20160215 0-32 IU/L ----Potassium, Serum 5.0 20160215 3.5-5.2 mmol/L ----Chloride, Serum 101 20160215 97-108 mmol/L ROUTINE VENIPUNCTURE THYROID ANALYZER ----TSH 3.060 20160215 0.450-4.500 uIU/mL Summary Purpose eClinicalWorks Submission
== END 2018-12-13 10:00 | disposition home or self-care (01) ==
LOC: ENDO 07:12
PROVIDERS: ATTEND Internal Medicine Critical Care Medicine
DX: J84.9 Interstitial pulmonary disease, unspecified (principal); R91.1 Solitary pulmonary nodule; J44.9 Chronic obstructive pulmonary disease, unspecified; J30.2 Other seasonal allergic rhinitis; R09.02 Hypoxemia; F17.211 Nicotine dependence, cigarettes, in remission; Z86.11 Personal history of tuberculosis; Z79.899 Other long term (current) drug therapy
CPT/HCPCS: 71045; 87015; 87070; 87101; 87116; 87205; 87206; 88112; 88305; 88312; 94640

== ENCOUNTER → 2018-12-18 | Outpatient (CLI) | payer MEDICAID ==
--- NOTE | 2018-12-18 16:50 | Diagnostic Imaging Report ---
INDICATION: Left lower lobe lung mass. TECHNIQUE: Serum blood glucose level at the time of injection is 85 mg/dL. Patient was administered 12.8 mCi F-18 FDG intravenously in the left forearm and PET imaging was performed from the top of the skull to mid thighs. Noncontrast CT was also performed for attenuation correction and anatomic correlation. COMPARISON: Comparison is made with recent chest x-ray from 12/13/[address] from 12/22/2016. No prior PET studies available for comparison. FINDINGS: There is symmetric activity throughout the brain. Physiologic activity in the neck soft tissues is noted. Previously noted cavitary mass in the right upper lobe has decreased in size when compared with prior chest CT. Cavitary portion now measures 2.2 cm compared with 4.5 cm on prior imaging. Low level activity along the margins of the cavitary lesion is noted with SUV max of approximately 3. There is slightly greater activity noted along the inferior and medial aspect of the cavitary lesion with SUV max of 3.6. Previously noted regions of nodularity bilateral upper and lower lobes are again noted but do not show FDG avidity. No hilar or mediastinal hypermetabolism is identified. Imaging through the abdomen shows physiologic activity in the GI and tracts. No abnormal hypermetabolism is identified. IMPRESSION: Overall decrease in size of previously noted cavitary lesion in the right upper lobe when compared with conventional CT from two years earlier. There is minimal uptake along the margins of the lesion, as described with borderline activity along the inferior medial aspect reaching 3.6 SUV max. This again is likely on an infectious/inflammatory basis, particularly in light of the overall stability and slight improvement over two-year interval. Continued chest CT followup to confirm stability is recommended. No new abnormality is identified. Dictated by: Dictated on workstation # [id number]
== END ==
LOC: RAD 09:18
PROVIDERS: ATTEND Nurse Practitioner Family
DX: J44.9 Chronic obstructive pulmonary disease, unspecified (principal); J30.2 Other seasonal allergic rhinitis; R91.8 Other nonspecific abnormal finding of lung field; F17.200 Nicotine dependence, unspecified, uncomplicated

== ENCOUNTER → 2019-03-26 | Outpatient (CLI) | payer MEDICAID ==
[~2019-03-26] MED LIST changes: +HOLD METFORMIN - RECEIVED CONTRAST 20 ML VIAL IV SCH; +IOHEXOL 350 MG/ML 100 ML (OMNIPAQUE 350) VIAL IV ONE; +NS 100 ML (IVPB) BAG IV ONE; -PYRI50TA10 PO; +PYRI50TA11 PO
[2019-03-26 09:39] LABS: BUN/CREATININE RATIO 14; GFR ESTIMATED > 60
--- NOTE | 2019-03-26 11:28 | Diagnostic Imaging Report ---
PROCEDURE: CT chest with contrast only. TECHNIQUE: Multiple contiguous axial images were obtained through the chest after administration of intravenous contrast. Auto Exposure Controls were utilized during the CT exam to meet ALARA standards for radiation dose reduction. INDICATION: Difficulty breathing The previous CT chest exam of 12/22/16 noted a cavitary mass in the right upper lobe and in the left perihilar region. There are also nodular densities in both lungs. The PET/CT exam of 12/18/2018 failed to show any abnormal hyper metabolic activity that was convincing for malignancy. On this exam, the area of cavitation in the right upper lung measures slightly smaller than on the previous study. This area is now estimated to be 19.7 MM as opposed to 22.4 MM previously. The nodular densities in the right upper lung seen previously are essentially no different. There is still persistent alveolar/interstitial infiltrates. The other nodular densities in the left upper lung seen previously are essentially no different as well. The small scattered nodules in the right lower lobe and the coarse interstitial densities in this region seems similar to the prior exam as well. The left lung base is generally clear. There is no evidence for pneumonia or for a pleural effusion. The heart size is stable when compared to the prior exam. Coronary artery calcifications are evident. The aorta is not abnormally dilated. There is no defect within the pulmonary arteries to indicate a pulmonary embolus. The mediastinal nodes seen previously are again evident and unchanged. The thyroid gland is unremarkable. There is no obvious breast mass. The sections through the upper abdomen fail to show any sign of an acute abnormality. The bone windows show no sign of a fracture or of a destructive lesion. IMPRESSION: 1. When compared to the recent PET/CT exam there does not appear to have been any significant change. The area of cavitation in the right upper lobe does measure slightly smaller than on the previous study. The abnormal parenchymal densities and nodules in the right upper lung seen previously are essentially no different. The parenchymal nodules and densities in the left lung also seem similar to the prior exam. 2. There is no acute cardiopulmonary abnormality identified. Dictated by: Dictated on workstation # [id number]
== END ==
LOC: RAD 09:05
PROVIDERS: ATTEND Nurse Practitioner Family
DX: A15.0 Tuberculosis of lung (principal); J98.4 Other disorders of lung; R91.8 Other nonspecific abnormal finding of lung field; J85.2 Abscess of lung without pneumonia; J30.2 Other seasonal allergic rhinitis; J44.9 Chronic obstructive pulmonary disease, unspecified
CPT/HCPCS: 36415; 71260; 82565; 84520